=== PATIENT | female | born 1985 | race Caucasian/White ===

== ENCOUNTER 2016-10-16 23:29 | Day surgery (SDC) | payer OTHER ==
[~2016-10-16] VITALS: Ht 165.1 cm; Wt 61.2 kg
[~2016-10-16 23:29] MED LIST: BIRTH CONTROL
[2016-10-16] MEDS ORDERED: NS IV 1000 ML 1,000 ML IV ONE (23:45)
--- NOTE | 2016-10-16 23:59 | ED GU-Female ---
General Chief Complaint: -Female Stated Complaint: HEAVY BLEEDING 11WKS PG Source: patient History of Present Illness Time seen by provider: 23:40 Initial Comments PT ARRIVES VIA POV LMP 07/30/16 AND WAS NORMAL HAS HAD POSITIVE TEST, BUT ON ULTRASOUND 3 WEEKS AGO, SHOWED A "DISINTEGRATING YOLK SAC" BEGAN HAVING SPOTTING A WEEK AGO, HAS INCREASED THE LAST FEW DAYS, THEN AT 2000 TONIGHT, SUDDENLY BEGAN HAVING VERY HEAVY BLEEDING--HAS GONE THROUGH A PACK OF MAXI PADS IN THE LAST 4 HOURS, AND BLOOD IS SOAKING THROUGH CLOTHING WITH LARGE CLOTS IN UNDERWEAR AND CLOTHING, NOW. HAS HAD CRAMPING OFF AND ON FOR THE LAST FEW DAYS, BUT IS WORSE TODAY--IS BETTER RIGHT NOW, THAN IT WAS EARLIER. BEGAN FEELING DIZZY PRIOR TO ARRIVAL, NO SYNCOPE--DIZZINESS ESPECIALLY WITH WALKING C/O SHORTNESS OF BREATH ON EXERTION PRIOR TO ARRIVAL HAS BEEN CHECKING PULSE THIS EVENING--WAS IN 70'S AROUND 2130--HAS GONE UP CONSIDERABLY, AND IS IN 120'S-130'S NOW. NO NAUSEA/VOMITING NO FEVER NO URINARY SYMPTOMS AB0-, NO COMPLICATIONS SAW BYPRODUCT ENGINEER AT [facility] ON Tuesday10/12/16 NO PCP Allergies and Home Medications Allergies Coded Allergies: Sulfamethoxazole (Unverified Allergy, 10/06/10) Trimethoprim (Unverified Allergy, 10/06/10) Home Medications Acetaminophen with Codeine 1 Each Tablet, 1 TAB PO Q6H PRN for PAIN-MODERATE, # 30 Prescribed by: SKYLAR WILSON on 10/17/16 0153 Ibuprofen 600 Mg Tablet, 600 MG PO Q6HR PRN for PAIN-MILD, #80 Prescribed by: SKYLAR WILSON on 10/17/16 0153 [ Control] , (Reported) Constitutional: see HPI, dizziness Respiratory: see HPI, dyspnea on exertion Cardiovascular: no symptoms reported, No chest pain Gastrointestinal: see HPI, abdominal pain, No nausea, No vomiting Genitourinary: see HPI : Yes LMP: Jul 30, 2016 Musculoskeletal: no symptoms reported Skin: no symptoms reported Psychiatric/Neurological: No Symptoms Reported Endocrine: No Symptoms Reported Hematologic/Lymphatic: See HPI Past Okhmpvy-Bpolsn-Dfawwg Hx Patient Social History Alcohol Use: Rarely Uses Recreational Drug Use: No Smoking Status: Never a Smoker Recent Foreign Travel: No Contact w/Someone Who Travel: No Surgeries HX Surgeries: Yes (RIGHT HIP SURGERY/LABRAL TEAR AND LATER HARDWARE REMOVAL. WISDOM TEETH REMOVED; HYMENECTOMY) Surgeries: Orthopedic Respiratory Hx Respiratory Disorders: No Cardiovascular Hx Cardiac Disorders: No Neurological Hx Neurological Disorders: No Reproductive System : Yes Hx : 3 Hx Para: 2 Hx Total # of Abortions (Spona: 0 Hx Reproductive Disorders: No Sexually Transmitted Disease: No HIV/AIDS: No Genitourinary Hx Genitourinary Disorders: No Gastrointestinal Hx Gastrointestinal Disorders: No Musculoskeletal Hx Musculoskeletal Disorders: Yes (RIGHT HIP SURGERY) Endocrine Hx Endocrine Disorders: No HEENT HX ENT Disorders: No Cancer Hx Cancer: No Psychosocial Hx Psychiatric Problems: No Integumentary HX Skin/Integumentary Disorder: No Blood Transfusions Hx Blood Disorders: No Physical Exam Vital Signs Vital Sign - Last 12Hours 10/17/16 00:48 Temp 99.7 Pulse 103 Resp 23 B/P (MAP) 122/74 Pulse Ox 100 Capillary Refill : General Appearance: WD/WN, no apparent distress Neck: normal inspection Cardiovascular: no murmur, tachycardia Respiratory: normal breath sounds, no respiratory distress, no accessory muscle use Gastrointestinal: soft, no organomegaly, No rebound, tenderness (MILD SUPRAPUBIC TENDERNESS) Pelvic: vaginal bleeding, other (COPIOUS VAGINAL BLEEDING WITH LARGE CLOTS-- UNABLE TO VISUALIZE CERVIX OR CANAL DUE TO BLEEDING, DESPITE MULTIPLE ATTEMPTS TO CLEAR BLOOD AND CLOTS ) Extremities: no pedal edema Neurologic/Psychiatric: no motor/sensory deficits, alert, oriented x 3 Skin: warm/dry, pallor Progress/Results/Core Measures Results/Orders Lab Results Laboratory Tests Test 10/16/16 23:50 Range/Units White Blood Count 10.5 4.3-11.0 10^3/uL Red Blood Count 3.56 L 4.35-5.85 10^6/uL Hemoglobin 11.5 11.5-16.0 G/DL Hematocrit 34 L 35-52 % Mean Corpuscular Volume 95 80-99 FL Mean Corpuscular Hemoglobin 32 25-34 PG Mean Corpuscular Hemoglobin Concent 34 32-36 G/DL Red Cell Distribution Width 12.3 10.0-14.5 % Platelet Count 228 130-400 10^3/uL Mean Platelet Volume 9.4 7.4-10.4 FL Neutrophils (%) (Auto) 61 42-75 % Lymphocytes (%) (Auto) 31 12-44 % Monocytes (%) (Auto) 8 0-12 % Eosinophils (%) (Auto) 0 0-10 % Basophils (%) (Auto) 0 0-10 % Neutrophils # (Auto) 6.4 1.8-7.8 X 10^3 Lymphocytes # (Auto) 3.3 1.0-4.0 X 10^3 Monocytes # (Auto) 0.8 0.0-1.0 X 10^3 Eosinophils # (Auto) 0.0 0.0-0.3 10^3/uL Basophils # (Auto) 0.0 0.0-0.1 10^3/uL Prothrombin Time 12.8 12.2-14.7 SEC INR Comment 1.0 0.8-1.4 Activated Partial Thromboplast Time 26 24-35 SEC Sodium Level 138 135-145 MMOL/L Potassium Level 3.2 L 3.6-5.0 MMOL/L Chloride Level 105 98-107 MMOL/L Carbon Dioxide Level 21 21-32 MMOL/L Anion Gap 12 5-14 MMOL/L Blood Urea Nitrogen 15 7-18 MG/DL Creatinine 0.82 0.60-1.30 MG/DL Estimat Glomerular Filtration Rate > 60 BUN/Creatinine Ratio 18 Glucose Level 147 H 70-105 MG/DL Calcium Level 8.9 8.5-10.1 MG/DL Human Chorionic Gonadotropin, Quant 1306 H <5 MIU/ML My Orders Orders - MILANA GIBSON DO Basic Metabolic Panel (10/16/16 23:43) Cbc With Automated Diff (10/16/16 23:43) Hcg,Quantitative (10/16/16 23:43) Saline Lock/Iv-Start (10/16/16 23:45) Saline Lock/Iv-Start (10/16/16 23:45) Ns Iv 1000 Ml (Sodium Chloride 0.9%) (10/16/16 23:45) Protime With Inr (10/16/16 23:45) Partial Thromboplastin Time (10/16/16 23:45) Red Cells Leukocytes Reduced (10/16/16 23:45) Monitor-Rhythm Ecg Trace Only (10/16/16 23:45) Type And Screen (10/16/16 23:43) Red Cells Leukocytes Reduced (10/16/16 23:50) Medications Given in ED Current Medications Medications Dose Ordered Sig/Vane Route Start Time Stop Time Status Last Admin Dose Admin Sodium Chloride 1,000 ml @ 0 mls/hr Q0M ONCE IV 10/16/16 23:45 10/16/16 23:47 DC 10/17/16 00:15 1,000 MLS/HR Vital Signs/I&O Vital Sign - Last 12Hours 10/17/16 10/17/16 00:48 00:54 Temp 99.7 99.7 Pulse 103 95 Resp 23 18 B/P (MAP) 122/74 125/73 Pulse Ox 100 100 Progress Note : Progress Note NO DETERIORATION IN PT'S CONDITION DURING ER STAY BLOOD TRANSFUSION STARTED IN ER. HEART RATE DOWN AND BP STABLE DURING ER STAY. Departure Communication Progress Notes 0011--SPOKE WITH DR. WILSON, WILL BE IN TO SEE PT AND ADVISES TO CALL IN OR CREW. 0030--DR WILSON HERE TO SEE PT. CARE TURNED OVER TO HIM--HE WILL BE TAKING PT TO SURGERY SHORTLY. Impression Impression: Primary Impression: Spontaneous in first trimester Additional Impressions: Vaginal hemorrhage Volume depletion due to hemorrhage Disposition: ADMITTED INPATIENT (TO SURGERY) Condition: Stable Decision to Admit Reason: Admit from ER (General) Decision to Admit/Date: Oct 17, 2016 Time/Decision to Admit Time: 00:11 Departure-Patient Inst. Referrals: NO,LOCAL PHYSICIAN (PCP/Family) Primary Care Physician Scripts Ibuprofen (Ibuprofen) 600 Mg Tablet 600 MG PO Q6HR Y for PAIN-MILD, #80 TAB Prov: SKYLAR WILSON DO 10/17/16 Acetaminophen with Codeine (Acetaminophen-Cod #3 Tablet) 1 Each Tablet 1 TAB PO Q6H Y for PAIN-MODERATE, #30 TAB Prov: SKYLAR WILSON DO 10/17/16 MILANA GIBSON DO Oct 16, 2016 23:59
[2016-10-17] VITALS (9 sets, daily range): BP systolic 86–125; BP diastolic 52–74
[2016-10-17 00:02] LABS: BASOPHILS % (AUTO) 0 % (0-10); EOSINOPHILS % (AUTO) 0 % (0-10); LYMPHOCYTES # (AUTO) 3.3 X 10^3 (1.0-4.0); LYMPHOCYTES % (AUTO) 31 % (12-44); MEAN CORPUSCULAR HEMOGLOBIN 32 PG (25-34); MEAN CORPUSCULAR HGB CONC 34 G/DL (32-36); MEAN CORPUSCULAR VOLUME 95 FL (80-99); MEAN PLATELET VOLUME 9.4 FL (7.4-10.4); MONOCYTES # (AUTO) 0.8 X 10^3 (0.0-1.0); MONOCYTES % (AUTO) 8 % (0-12); NEUTROPHILS # (AUTO) 6.4 X 10^3 (1.8-7.8); NEUTROPHILS % (AUTO) 61 % (42-75); PLATELET COUNT 228 10^3/uL (130-400); RED BLOOD COUNT 3.56 10^6/uL (4.35-5.85); RED CELL DISTRIBUTION WIDTH 12.3 % (10.0-14.5); WHITE BLOOD COUNT 10.5 10^3/uL (4.3-11.0)
[2016-10-17 00:11] LABS: PROTHROMBIN TIME PATIENT 12.8 SEC (12.2-14.7)
[2016-10-17 00:27] LABS: ANION GAP 12 MMOL/L (5-14); BLOOD UREA NITROGEN 15 MG/DL (7-18); BUN/CREATININE RATIO 18; CALCIUM 8.9 MG/DL (8.5-10.1); CARBON DIOXIDE 21 MMOL/L (21-32); CHLORIDE 105 MMOL/L (98-107); CREATININE SERUM 0.82 MG/DL (0.60-1.30); GFR ESTIMATED > 60; GLUCOSE 147 MG/DL (70-105); POTASSIUM 3.2 MMOL/L (3.6-5.0); SODIUM 138 MMOL/L (135-145)
--- NOTE | 2016-10-17 00:47 | History & Physical-Surgical ---
HPO-Surgical History of Present Illness Chief Complaint: Hemorrhaging after miscarriage Diagnosis/Surgical Indication: Incomplete Ab Procedure: Suction D and C Date of Surgery: Oct 17, 2016 Allergies and Home Medications Allergies Coded Allergies: Sulfamethoxazole (Unverified Allergy, 10/06/10) Trimethoprim (Unverified Allergy, 10/06/10) Home Medications [ Control] , (Reported) Past Ipqptlj-Sbtrwu-Hadqji Hx Patient Social History Alcohol Use: Rarely Uses Recreational Drug Use: No Smoking Status: Never a Smoker Recent Foreign Travel: No Contact w/other who traveled: No Surgeries HX Surgeries: Yes (RIGHT HIP SURGERY/LABRAL TEAR AND LATER HARDWARE REMOVAL. WISDOM TEETH REMOVED; HYMENECTOMY) Surgeries: Orthopedic Respiratory Hx Respiratory Disorders: No Cardiovascular Hx Cardiovascular Disorders: No Neurological Hx Neurological Disorders: No Reproductive System : Yes Hx : 3 Hx Para: 2 Hx Total # of Abortions (Spona: 0 Hx Reproductive Disorders: No Sexually Transmitted Disease: No HIV/AIDS: No Genitourinary Hx Genitourinary Disorders: No Gastrointestinal Hx Gastrointestinal Disorders: No Musculoskeletal Hx Musculoskeletal Disorders: Yes (RIGHT HIP SURGERY) Endocrine Hx Endocrine Disorders: No HEENT HX ENT Disorders: No Cancer Hx Cancer: No Psychosocial Hx Psychiatric Problems: No Integumentary HX Skin/Integumentary Disorder: No Blood Transfusions Hx Blood Disorders: No Exam Vital Signs Capillary Refill : Labs Laboratory Tests Test 10/16/16 23:50 Range/Units White Blood Count 10.5 4.3-11.0 10^3/uL Red Blood Count 3.56 L 4.35-5.85 10^6/uL Hemoglobin 11.5 11.5-16.0 G/DL Hematocrit 34 L 35-52 % Mean Corpuscular Volume 95 80-99 FL Mean Corpuscular Hemoglobin 32 25-34 PG Mean Corpuscular Hemoglobin Concent 34 32-36 G/DL Red Cell Distribution Width 12.3 10.0-14.5 % Platelet Count 228 130-400 10^3/uL Mean Platelet Volume 9.4 7.4-10.4 FL Neutrophils (%) (Auto) 61 42-75 % Lymphocytes (%) (Auto) 31 12-44 % Monocytes (%) (Auto) 8 0-12 % Eosinophils (%) (Auto) 0 0-10 % Basophils (%) (Auto) 0 0-10 % Neutrophils # (Auto) 6.4 1.8-7.8 X 10^3 Lymphocytes # (Auto) 3.3 1.0-4.0 X 10^3 Monocytes # (Auto) 0.8 0.0-1.0 X 10^3 Eosinophils # (Auto) 0.0 0.0-0.3 10^3/uL Basophils # (Auto) 0.0 0.0-0.1 10^3/uL Prothrombin Time 12.8 12.2-14.7 SEC INR Comment 1.0 0.8-1.4 Activated Partial Thromboplast Time 26 24-35 SEC Sodium Level 138 135-145 MMOL/L Potassium Level 3.2 L 3.6-5.0 MMOL/L Chloride Level 105 98-107 MMOL/L Carbon Dioxide Level 21 21-32 MMOL/L Anion Gap 12 5-14 MMOL/L Blood Urea Nitrogen 15 7-18 MG/DL Creatinine 0.82 0.60-1.30 MG/DL Estimat Glomerular Filtration Rate > 60 BUN/Creatinine Ratio 18 Glucose Level 147 H 70-105 MG/DL Calcium Level 8.9 8.5-10.1 MG/DL Human Chorionic Gonadotropin, Quant 1306 H <5 MIU/ML General Appearance: Alert, Oriented X3 HEENT: Atraumatic Abdominal: Soft, Other (due to amount of bleeding unable to do adequate pelvic exam) Extremities: No Clubbing, No Cyanosis, No Edema Neuro: Normal Gait Psych/Mental Status: Mental Status NL Assessment/Plan Assessment and Plan Diagnosis: 31 yo @ 12 weeks per patient( and care at [facility]) Acute vaginal hemorrhage P: Proceeding with D and C evacuation of POC, and stabilization of bleeding thereafter. -Risk of procedure discussed with patient with present, will proceed urgently due to amount of bleeding, blood transfusion pending. Problems: Admission Diagnosis Diagnosis: 31 yo @ 12 weeks per patient( and care at [facility]) Acute vaginal hemorrhage SKYLAR WILSON DO Oct 17, 2016 12:47 am
[2016-10-17] MEDS ORDERED: SUCCINYLCHOLINE INJ 100 MG/5 ML SYR ONE (00:54)
[2016-10-17] MEDS ORDERED: fentaNYL INJECTION 100 MCG/2 ML AMP ONE (00:54)
[2016-10-17] MEDS ORDERED: proPOfol 200 MG/20 ML (DIPRIVAN) VIAL IV ONE (00:54)
[2016-10-17] MEDS ORDERED: MIDAZOLAM 2 MG/2 ML (VERSED) VIAL ONE (00:54)
[2016-10-17] MEDS ORDERED: CARBOPROST (HEMABATE) 250 MCG/ML AMP IM ONE (00:59)
[2016-10-17] MEDS ORDERED: METHYLERGONOVINE 0.2 MG/ML (METHERGINE) AMP ONE (00:59)
[2016-10-17] MEDS ORDERED: KETOROLAC 30 MG/ML VIAL ONE (01:04)
[2016-10-17] MEDS ORDERED: morphine INJ 10 MG/ML 1ML (SYR OR VIAL) ONE (01:04)
[2016-10-17] MEDS ORDERED: SEVOFLURANE (ULTANE) 15 ML INHAL SOLN ONE (01:26)
[2016-10-17] MEDS ORDERED: LACTATED RINGERS 1,000 ML IV ONE (01:26)
[2016-10-17] MEDS ORDERED: ONDANSETRON 4 MG/2 ML (SDV) Z0FRAN ONE (01:26)
[2016-10-17] MEDS ORDERED: D5 LR IV SOLUTION 1,000 ML IV SCH (01:46)
[2016-10-17] MEDS ORDERED: IBUP-1773 PO (01:53)
[2016-10-17] MEDS ORDERED: ACET1TAB43 PO (01:53)
[2016-10-17] MEDS ORDERED: LACTATED RINGERS 1,000 ML IV PRN (01:54)
--- NOTE | 2016-10-17 01:54 | Discharge Inst-Women's Service ---
Discharge Inst-Women's Serv Depart Medication/Instructions New, Converted or Re-Newed RX: RX on Chart Final Diagnosis Incomplete Ab Consults/Follow Up Additional Follow Up: Yes Orders/Referrals Follow up with Dr. Wilson in 2-3 weeks Activity Activity: Activity as Tolerated Driving Instructions: You May Drive (no driving today or tomorrow) NO SMOKING: NO SMOKING Nothing Inside Vagina: No Douching, No [place], No Tampons Diet Discharge Diet: No Restrictions Symptoms to Report to : Bleeding Excessive, Pain Increased, Fever Over 101 Degrees F, Vaginal Bleeding Increase, Questions/Concerns For Any Problems or Questions: Contact Your Physician Skin/Wound Care Bathing Instructions: Shower (x 2 weeks) SKYLAR WILSON DO Oct 17, 2016 01:54
--- NOTE | 2016-10-17 01:56 | Progress Note-Post Operative ---
Post-Operative Progess Note Surgeon (s)/Set Up And Lay Out Inspector (s) Surgeon SKYLAR WILSON DO Set Up And Lay Out Inspector: na Pre-Operative Diagnosis Incomplete Ab Post-Operative Diagnosis same Post-Op Procedure Note Date of Procedure: Oct 17, 2016 Name of Procedure Performed: suction d and c Description of the Procedure: see dictation Findings of the Procedure see dictation Anesthesia Type GETA Estimated blood loss (mL): 100 Specimen(s) collected/removed POC SKYLAR WILSON DO Oct 17, 2016 1:56 am
[2016-10-17] MEDS ORDERED: ONDANSETRON 4 MG/2 ML (SDV) Z0FRAN IVP PRN ×2 (02:00)
[2016-10-17] MEDS ORDERED: KETOROLAC 30 MG/ML VIAL IVP ONE (02:00)
[2016-10-17] MEDS ORDERED: IBUPROFEN 600 MG (MOTRIN) TAB PO PRN (02:00)
[2016-10-17] MEDS ORDERED: MEPERIDINE (DEMEROL) INJ 50 MG/ML IVP PRN (02:00)
[2016-10-17] MEDS ORDERED: morphine INJ 10 MG/ML 1ML (SYR OR VIAL) IVP PRN (02:00)
[2016-10-17] MEDS ORDERED: APAP 300 MG/CODEINE 30 MG (TYLENOL #3) TAB PO PRN (02:00)
[2016-10-17] MEDS ORDERED: fentaNYL INJECTION 100 MCG/2 ML AMP IVP PRN (02:00)
--- NOTE | 2016-10-17 05:35 | OPERATIVE REPORT ---
DATE OF SERVICE: 10/17/2016 PREOPERATIVE DIAGNOSES: 1. Incomplete . 2. Vaginal hemorrhage. POSTOPERATIVE DIAGNOSES: 1. Incomplete . 2. Vaginal hemorrhage. PROCEDURE: Suction dilatation and curettage. SURGEON: Dr. Michael Wilson. ANESTHESIA: General endotracheal. ESTIMATED BLOOD LOSS: 100 mL. URINE OUTPUT: 300 mL, clear at the end of procedure. FLUIDS: 1000 mL lactated Ringer's. FINDINGS: A moderate to heavy amount of products of conception. SPECIMEN SENT: Products of conception. INDICATIONS FOR PROCEDURE: This 31-year-old female came into the Emergency Department with acute hemorrhage that started at approximately 10:00 this evening. She went through an entire package of pads, soaking through all of them and presented to the Emergency Department where she was there for approximately 30 minutes and had soaked through all of their pads there and was bleeding out onto the floor. She was typed and crossed in the Emergency Department. I was called emergently to assess the patient. The OR was prepped on my way due to the amount of bleeding they described. When I presented to see the patient in the Emergency Department, she was still having a significant amount of bleeding and some cramping. I reviewed with the patient proceeding with a suction D and C. She had already been notified by her primary obstetric provider at [facility] that she had miscarried and had not passed the yet. Risks of suction D and C was discussed with her and her present. Risk of bleeding, infection, risk for further need of blood transfusion, risk of even hysterectomy and even were all discussed with the patient. After everything was discussed and all of their questions were answered, consent as obtained. The patient was taken to the operating room. OPERATIVE REPORT IN DETAIL: Once in the operating room, general anesthesia was found to be excellent. She was placed in dorsal lithotomy position, prepped and draped in normal sterile fashion. She was first examined under anesthesia. The uterus was approximately 10-12 week size. There was no adnexal fullness or masses appreciated on bimanual examination. A weighted speculum was inserted into the patient's vagina. A right angle retractor was used to visualize the cervix. It was grasped at the 12 o'clock position using a long ring forceps. I then gently sounded the uterine cavity, it was found to be approximately 10 cm. I then selected an 8 rigid suction curet and attached it to the Manteno device, at which point I gently advanced a curet into the endometrial cavity and activated the Manteno device to a pressure of 55 mmHg, at which point I methodically rotate the device around on 4 to 5 different passes, methodically clearing the endometrial cavity of any remaining products of conception. As described above, there is a moderate to heavy amount of products of conception removed, at which point I then turned off the suction device and make a pass with a medium size endometrial curet. Gently I curet the uterine cavity in all directions, ensuring there is no remaining retained products, there are none that are felt on that portion of the exam. I then proceed with one final pass with the suction curet, after which bleeding is noted to be minimal. I then remove all the instruments in the patient's vagina. Straight catheterization is used to drain the bladder. The patient tolerated the procedure well, sent to the recovery area in stable condition. Lap and sponge count correct at the end of procedure. Instrument count was correct as well. Specimen was sent to pathology. Job ID: [id number] DocumentID: [id number] Dictated Date: 10/17/2016 01:47:57 Welder Plasma Arc Date: 10/17/2016 05:35:18 Dictated By: SKYLAR WILSON DO
[2016-10-17] MEDS ORDERED: NS IV 1000 ML 2,000 ML ONE (06:38)
[2016-10-17 08:29] LABS: BASOPHILS % (AUTO) 1 % (0-10); EOSINOPHILS % (AUTO) 0 % (0-10); LYMPHOCYTES # (AUTO) 1.9 X 10^3 (1.0-4.0); LYMPHOCYTES % (AUTO) 28 % (12-44); MEAN CORPUSCULAR HEMOGLOBIN 31 PG (25-34); MEAN CORPUSCULAR HGB CONC 35 G/DL (32-36); MEAN CORPUSCULAR VOLUME 91 FL (80-99); MEAN PLATELET VOLUME 9.4 FL (7.4-10.4); MONOCYTES # (AUTO) 0.4 X 10^3 (0.0-1.0); MONOCYTES % (AUTO) 6 % (0-12); NEUTROPHILS # (AUTO) 4.4 X 10^3 (1.8-7.8); NEUTROPHILS % (AUTO) 65 % (42-75); PLATELET COUNT 167 10^3/uL (130-400); RED BLOOD COUNT 4.01 10^6/uL (4.35-5.85); RED CELL DISTRIBUTION WIDTH 14.1 % (10.0-14.5); WHITE BLOOD COUNT 6.7 10^3/uL (4.3-11.0)
--- NOTE | 2016-10-17 08:55 | Anesthesia-General Post-Op ---
General Patient Condition Mental Status/LOC: Same as Preop Cardiovascular: Satisfactory Nausea/Vomiting: Absent Respiratory: Satisfactory Pain: Controlled Complications: Absent Post Op Complications Complications None Follow Up Care/Instructions Patient Instructions None needed. Anesthesia/Patient Condition Patient Condition Patient is doing well, no complaints, stable vital signs, no apparent adverse anesthesia problems. No complications reported per nursing. TONI BORREGO CRNA Oct 17, 2016 08:55
== END 2016-10-17 10:10 | disposition home or self-care (01) ==
LOC: EDUNIT# 23:29 → ER 23:33 → SDC 10-17 00:26 → WS 10-17 01:55 → UNDOADMIN 10-17 01:55 → WS 10-17 01:55 → SDC 10-17 10:10 → UNDODISIN 10-17 10:10
PROVIDERS: ATTEND Obstetrics & Gynecology
DX: O03.1 Delayed or excessive hemorrhage following incomplete spontaneous abortion (principal); E86.9 Volume depletion, unspecified
CPT/HCPCS: 36415; 80048; 84702; 85025; 85610; 85730; 86850; 86900; 86901; 86920; 88305; 93041; 96360; 96361

== ENCOUNTER → 2017-02-04 | Outpatient (CLI) | payer OTHER ==
[~2017-02-04] MED LIST changes: +ACET1TAB43 PO; +IBUP-1773 PO
== END ==
LOC: LAB 16:38
DX: Z32.00 Encounter for pregnancy test, result unknown (principal)
CPT/HCPCS: 36415; 84144; 84702

== ENCOUNTER 2020-04-17 20:46 | Emergency (ER) | payer OTHER ==
[~2020-04-17] VITALS: Ht 175 cm; Wt 63.5 kg
[2020-04-17 21:00] VITALS: BP 117/78
--- NOTE | 2020-04-17 21:11 | ED General ---
General Stated Complaint: SMOKE INHALATION Source of Information: Patient Allergies and Home Medications Allergies Coded Allergies: sulfamethoxazole (Unverified Allergy, Unknown, 10/17/16) trimethoprim (Unverified Allergy, Unknown, 10/17/16) Home Medications Acetaminophen with Codeine 1 Each Tablet, 1 TAB PO Q6H PRN for PAIN-MODERATE Prescribed by: SKYLAR WILSON on 10/17/16 0153 Ibuprofen 600 Mg Tablet, 600 MG PO Q6HR PRN for PAIN-MILD Prescribed by: SKYLAR WILSON on 10/17/16 0153 Past Rqdkkow-Cftbzg-Ltrcnd Hx Patient Social History Recent Foreign Travel: No Contact w/Someone Who Travel: No Past Medical History Surgeries: Yes (hip labral tear) Orthopedic Respiratory: No Cardiac: No Neurological: No Reproductive Disorders: No Sexually Transmitted Disease: No HIV/AIDS: No Genitourinary: No Gastrointestinal: No Musculoskeletal: No Endocrine: No HEENT: No Cancer: No Psychosocial: No Integumentary: No Blood Disorders: No Physical Exam Vital Signs Capillary Refill : Height, Weight, BMI Height: 5'5.00" Weight: 135lbs. oz. 61.978395lt; BMI Method:Estimated Progress/Results/Core Measures Suspected Sepsis SIRS Temperature: Pulse: Respiratory Rate: Blood Pressure / Mean: Results/Orders Vital Signs/I&O Capillary Refill : Departure Impression Primary Impression: BRIEF SMOKE INHALATION Disposition: 01 HOME, SELF-CARE Condition: Stable Departure-Patient Inst. Referrals: NO,LOCAL PHYSICIAN (PCP/Family) Primary Care Physician Patient Instructions: Smoke Inhalation (DC) Add. Discharge Instructions: RETURN TO ER IF SYMPTOMS WORSEN MILANA GIBSON DO Apr 17, 2020 21:11
== END 2020-04-17 21:17 | disposition home or self-care (01) ==
LOC: EDUNIT# 20:46 → ER 20:48
DX: T59.811A Toxic effect of smoke, accidental (unintentional), initial encounter (principal); Z88.2 Allergy status to sulfonamides; Z88.1 Allergy status to other antibiotic agents
CPT/HCPCS: 99283